=== PATIENT | male | born 1950 | race African-American/Black ===

== ENCOUNTER 2022-07-12 22:57 | Emergency (ER) | payer OTHER, MEDICARE ==
[~2022-07-12] VITALS: Ht 180.3 cm; Wt 97.5 kg
[2022-07-12] MEDS ORDERED: CODEINE SULFATE30 MG PO (23:06)
[2022-07-12] MEDS ORDERED: OZEMPIC1 MG/0.71 SUB-Q (23:07)
[2022-07-12] MEDS ORDERED: METOPROLOL SUCC50 MG PO (23:08)
[2022-07-12] MEDS ORDERED: NORVASC5 MG PO (23:08)
[2022-07-12] MEDS ORDERED: CYCLOBENZAPRINE10 MG PO (23:09)
[2022-07-12] MEDS ORDERED: LOW DOSE ASPIRI81 MG PO (23:09)
--- OUTSIDE RECORDS SUMMARY | 2022-07-13 00:18 | XMS ---
PreManage Notification: KUSUM GODWIN [employer] Lead Events No recent Security Events currently on file CRITERIA MET - [facility] - Has Care Guidelines - [facility] - 2 Visits in 30 Days - [facility] - 3 Facilities in 90 Days CARE PROVIDERS There are no care providers on record at this time. Guidelines Source: [facility] Guidelines Date: 03/23/2021 Care Recommendation: ED Plan: 1. Please educate patient re: appropriate use of ED as warranted.\T\nbsp; Refer patient to PCP or other OP providers as appropriate. 2. Please utilize [facility] website to view prescription acquisition for any concerns of medication seeking behaviors. 3. Involve ED CM and/or SW as needed to address barriers to care, possible secondary gains, OP disease management, follow up care 4. Limit workup for chronic or non-urgent issues and limit Rx refills, to encourage OP follow up 5. Recommend referring patient to PCP or other outpatient provider for treatment of chronic conditions with controlled substances. Restrict use of controlled substances to obvious trauma and major medical issues. 6. Please provide [employer] ([phone]) as a resource for an in-home follow up visit to help bridge the gap between ED and PCP visit \T\nbsp; THESE ARE GUIDELINES AND PROVIDERS SHOULD USE CLINICAL JUDGEMENT WHEN PROVIDING CARE. \T\nbsp; E.D. VISIT COUNT (12 MO.) [address] [facility] 1 DEBORA Frazier TOTAL 3 NOTE: Visits indicate total known visits. ED/UCC VISIT TRACKING (12 MO.) 07/12/2022 22:58 DEBORA Ivey TYPE: Emergency COMPLAINT: - DIZZINESS 06/16/2022 09:36 Lizet BAKER TYPE: Emergency DIAGNOSES: - Cramp and spasm 06/11/2022 13:08 [facility] BAKER TYPE: Emergency DIAGNOSES: - BACK PAIN INPATIENT VISIT TRACKING (12 MO.) No inpatient visits to display in this time frame [email or web address]
== END 2022-07-12 23:44 | disposition home or self-care (01) ==
LOC: ED 22:57
DX: R42 Dizziness and giddiness (principal); I10 Essential (primary) hypertension; E11.9 Type 2 diabetes mellitus without complications; M25.512 Pain in left shoulder; G89.29 Other chronic pain; Z86.73 Personal history of transient ischemic attack (TIA), and cerebral infarction without residual deficits; Z88.5 Allergy status to narcotic agent; Z79.899 Other long term (current) drug therapy; Z79.82 Long term (current) use of aspirin
CPT/HCPCS: 99284